=== PATIENT | female | born 1980 | race Caucasian/White ===

== ENCOUNTER 2023-08-17 07:27 | Outpatient (RCR) | payer OTHER, SELFPAY | END 2023-08-17 23:59 | disposition home or self-care (01) | LOC: RPT 07:27 | PROVIDERS: ATTENDING PHYSICIAN Obstetrics & Gynecology Gynecology; FAMILY PHYSICIAN Internal Medicine | DX: N81.6 Rectocele (principal); N81.10 Cystocele, unspecified; M62.89 Other specified disorders of muscle; Z73.6 Limitation of activities due to disability; M62.81 Muscle weakness (generalized) | CPT/HCPCS: 97014; 97110; 97112; 97140; 97530 ==

== ENCOUNTER 2023-09-13 08:35 | Outpatient (RCR) | payer OTHER, SELFPAY | END 2023-09-13 23:59 | disposition home or self-care (01) | LOC: RPT 08:35 | PROVIDERS: ATTENDING PHYSICIAN Obstetrics & Gynecology Gynecology; FAMILY PHYSICIAN Internal Medicine | DX: N81.6 Rectocele (principal); N81.10 Cystocele, unspecified; M62.89 Other specified disorders of muscle; Z73.6 Limitation of activities due to disability; M62.81 Muscle weakness (generalized); M54.50 Low back pain, unspecified; R32 Unspecified urinary incontinence | CPT/HCPCS: 97014; 97112; 97530 ==

== ENCOUNTER → 2024-10-24 08:12 | Outpatient (REF) | payer OTHER, SELFPAY | LOC: WDC 08:12 | PROVIDERS: ATTENDING PHYSICIAN Family Medicine | DX: Z12.31 Encounter for screening mammogram for malignant neoplasm of breast (principal); Z82.62 Family history of osteoporosis; N91.2 Amenorrhea, unspecified | CPT/HCPCS: 77063; 77067; 77080 ==

== ENCOUNTER → 2024-11-07 09:10 | Outpatient (REF) | payer OTHER, SELFPAY | LOC: WDC 09:10 | PROVIDERS: ATTENDING PHYSICIAN Family Medicine | DX: R92.8 Other abnormal and inconclusive findings on diagnostic imaging of breast (principal) | CPT/HCPCS: 76642 ==

== ENCOUNTER → 2025-05-05 07:54 | Outpatient (REF) | payer OTHER, SELFPAY | LOC: WDC 07:54 | PROVIDERS: ATTENDING PHYSICIAN Family Medicine | DX: R92.8 Other abnormal and inconclusive findings on diagnostic imaging of breast (principal) | CPT/HCPCS: 76642 ==